=== PATIENT | female | born 1980 | race Caucasian/White ===

== ENCOUNTER → 2020-11-23 17:40 | Outpatient (CLI) | payer BC, SELFPAY ==
--- NOTE | ~2020-11-23 | MM_ITS ---
EXAMINATION: MM screening kimmy BI w bereket HISTORY: Screening mammogram TECHNIQUE: Craniocaudal and mediolateral oblique 3-D tomosynthesis images were obtained and synthetic 2-D images were generated. CAD analysis was submitted and interpreted. COMPARISON: No prior mammogram is available for comparison at this institution. BREAST PARENCHYMAL COMPOSITION: There are scattered areas of fibroglandular density. FINDINGS: Marrow bilateral mammographic asymmetries. Bilateral diagnostic mammography is recommended, with ultrasound if required. IMPRESSION: 1. Bilateral mammographic asymmetries 2. Bilateral diagnostic mammography is recommended, with ultrasound if required BI-RADS Category 0: Incomplete: Needs additional imaging evaluation. Reviewed, dictated and finalized at location A.
== END ==
PROVIDERS: Visit Provider Nurse Practitioner
DX: Z12.31 Encounter for screening mammogram for malignant neoplasm of breast (principal); R92.8 Other abnormal and inconclusive findings on diagnostic imaging of breast
CPT/HCPCS: 77063; 77067

== ENCOUNTER → 2020-12-29 14:21 | Outpatient (CLI) | payer BC, SELFPAY ==
--- NOTE | ~2020-12-29 | MMUS_ITS ---
EXAMINATION: MM diagnostic kimmy BI w bereket, US breast BI complete HISTORY: Follow-up breast asymmetries TECHNIQUE: Additional 3-D tomosynthesis images of the breasts were performed and synthetic 2-D images were generated. CAD analysis was submitted and interpreted. High resolution complete bilateral breas t ultrasound was performed. COMPARISON: 11/23/2020 BREAST PARENCHYMAL COMPOSITION: Breast composed of scattered areas of fibroglandular density. FINDINGS: MAMMOGRAPHIC FINDINGS: There are no suspicious masses, calcifications or architectural distortion to suggest malignancy. ULTRASOUND: Bilateral breast complete ultrasound: No discrete masses or fluid collections are identified in the r ight breast. There is a small 3 mm cyst in the left breast at 1:00, 5 cm from the nipple. No sonograp hic evidence for malignancy in either breast. IMPRESSION: 1. No evidence for malignancy in either breast. 2. Routine yearly screening mammogram and regular clinical breast examination are recommended. BI-RADS Category 2: Benign finding(s). Reviewed, dictated and finalized at location A. IMPRESSION: 1. No evidence for malignancy in either breast. 2. Routine yearly screening mammogram and regular clinical breast examination a re recommended. BI-RADS Category 2: Benign finding(s).
== END ==
PROVIDERS: Visit Provider Obstetrics & Gynecology Gynecology
DX: R92.8 Other abnormal and inconclusive findings on diagnostic imaging of breast (principal)
CPT/HCPCS: 76641; 77062; 77066; G0279

== ENCOUNTER 2021-05-05 07:58 | Outpatient (CLI) | payer OTHER, SELFPAY ==
--- NOTE | ~2021-05-05 | US_ITS ---
EXAMINATION: US right upper quadrant DATE: 05/05/2021 08:28 INDICATION: Nausea and vomiting, abdominal pain TECHNIQUE: Multiple grayscale and Doppler ultrasound images of the abdomen were obtained. COMPARISON: None available FINDINGS: The head and body of the pancreas are normal. The pancreatic tail is obscured by bowel gas. The liver is normal with normal echogenicity and echotexture. No surface nodularity. Normal hepatope irving flow in the main portal vein. The gallbladder is normal with no abnormal wall thickening, pericho lecystic fluid or stones. The normal common bile duct measures 5 mm. There was no sonographic Amaya sign. IMPRESSION: 1. Normal sonographic study of the gallbladder. Reviewed, dictated and finalized at location B.
== END 2021-05-05 07:59 | disposition home or self-care (01) ==
LOC: ANHIMG 08:03
PROVIDERS: PCP Family Medicine; Visit Provider Physician Assistant
DX: R11.2 Nausea with vomiting, unspecified (principal); R10.84 Generalized abdominal pain
CPT/HCPCS: 76705

== ENCOUNTER → 2021-05-11 14:57 | Outpatient (CLI) | payer OTHER, SELFPAY ==
--- NOTE | ~2021-05-11 | CT_ITS ---
EXAMINATION: CT abdomen w con INDICATION: Generalized abdominal pain TECHNIQUE: Computed tomographic images of the abdomen were obtained after the administration of 100 c c of Omnipaque 350 intravenous contrast. The dose-length product (DLP) was 767.58 mGy-cm. Automated e xposure control and iterative reconstruction technique were employed. COMPARISON: None FINDINGS: The visualized lung bases are clear. The heart size is normal. The liver, spleen, pancreas, gallbladder, and adrenal glands are normal. Cysts of the kidneys measure up to 1.4 cm on the left. T here is a 6 mm stone in the right renal pelvis. There is subtle urothelial enhancement of the right r enal pelvis compared to the left. There are no pathologically enlarged abdominal lymph nodes. There i s no free intraperitoneal gas or evidence of bowel obstruction. A fat-containing umbilical hernia is noted. IMPRESSION: 1. 6 mm stone of the right renal pelvis. Subtle urothelial enhancement in the renal pelvis could sugg est superimposed urinary tract infection. Reviewed, dictated and finalized at location B. BASES SOFTWARE CONSULTANT IMPRESSION: 1. 6 mm stone of the right renal pelvis. Subtle urothelial enhancement in the r enal pelvis could suggest superimposed urinary tract infection.
== END ==
PROVIDERS: PCP Family Medicine; Visit Provider Physician Assistant
DX: N20.0 Calculus of kidney (principal)
CPT/HCPCS: 74160; Q9967

== ENCOUNTER 2021-05-17 07:37 | Emergency (ER) | payer OTHER, SELFPAY ==
[2021-05-17] VITALS (20 sets, daily range): BP systolic 113–135; BP diastolic 78–99; PULSE 80–90; RESP 16–18; TEMP 36.8; O2SAT 96–100
--- NOTE | ~2021-05-17 | CT_ITS ---
EXAMINATION: CT abdomen pelvis wo con DATE: 05/17/2021 08:38 INDICATION: Right flank pain. TECHNIQUE: Computed tomography (CT) of the abdomen and pelvis was performed without intravenous contr ast. Automated exposure control and iterative reconstruction technique were employed. The dose-length product was 523.67 mGy-cm. COMPARISON: CT abdomen 05/11/2021 FINDINGS: The visualized portions of the lung bases demonstrate mild atelectasis. No pleural effusion . The heart size is normal. No pericardial effusion. The liver, spleen, pancreas, gallbladder, and ad renal glands are normal. There is a 2 mm stone in right kidney. There is mild right hydronephrosis an d proximal hydroureter. There are 4 mm and 3 mm stones in proximal right ureter. There are 3 stones i n left kidney measuring up to 5 mm. There are no dilated loops of bowel. There is a 2.8 x 1.7 cm mass in right inguinal region. The appendix is not well visualized. There are no pathologically enlarged lymph nodes. There is no free intraperitoneal fluid. There is a kaylene and screw fixation of right femur . There is mild lumbar spondylosis. IMPRESSION: 1. 4 mm and 3 mm stones in proximal right ureter with mild right hydronephrosis and proximal hydroure ter. 2. Bilateral nonobstructing kidney stones. 3. 2.8 x 1.7 cm mass in right inguinal region at the right side of the section scar. The dif ferential diagnosis includes endometriosis, desmoid, and scarring. Reviewed, dictated and finalized at location A. TRUCTION SERVICES TECHNICIAN IMPRESSION: 1. 4 mm and 3 mm stones in proximal right ureter with mild right hydronephrosis and proximal hydroureter. 2. Bilateral nonobstructing kidney stones. 3. 2.8 x 1.7 cm mass in right inguinal region at the right side of the section scar. The differential diagnosis includes endometriosis, desmoid, and scarring.
--- NOTE | 2021-05-17 08:57 | ED.ABDPAIN ---
HPI - Abdominal Pain General Chief Complaint: Abdominal Pain Stated Complaint: kidney stone Time Seen by Provider: 05/17/21 08:01 Source: patient and RN notes reviewed Mode of arrival: ambulatory Limitations: no limitations History of Present Illness HPI narrative: Patient complaining of right abdominal pain radiating to right flank area started few days ago, got worse overnight. Patient denies any fever, chills. Patient had a recent diagnosis of right kidney stone 7 days ago. Patient denies history of abdominal surgery. section x2. Related Data Allergies Allergy/AdvReac Type Severity Reaction Status Date / Time morphine Allergy Mild Nausea and Unverified 01/23/16 12:21 Vomiting codeine Allergy Unknown Unverified 01/23/16 12:21 Penicillins Allergy Unknown Verified 01/23/16 12:21 Review of Systems Review of Systems: CONSTITUTIONAL: Denies fever, chills, or sweats. EYES: Denies visual changes, redness, or discharge. ENT: Denies rhinorrhea, congestion, sore throat, or otalgia. CARDIOVASCULAR: Denies chest pain, palpitations, or edema. RESPIRATORY: Denies cough or dyspnea. GASTROINTESTINAL: Denies abdominal pain, nausea, vomiting, or diarrhea. GENITOURINARY: Denies dysuria or hematuria. SKIN: Denies rash or itching. MUSCULOSKELETAL: Denies back pain, joint pain, or myalgia. NEUROLOGIC: Denies headache, numbness, or weakness. PSYCHIATRIC: Denies anxiety or depression. Course Course Emergency Course: Stable Vital Signs Vital signs: Vital Signs Temperature 36.8 C 05/17/21 07:47 Pulse Rate 90 05/17/21 07:47 Respiratory Rate 16 05/17/21 07:47 Blood Pressure 135/86 05/17/21 07:47 Pulse Oximetry 100 05/17/21 07:47 Temperature 36.8 C 05/17/21 07:47 Pulse Rate 90 05/17/21 07:47 Respiratory Rate 16 05/17/21 07:47 Blood Pressure 135/86 05/17/21 07:47 Pulse Oximetry 100 05/17/21 07:47 MDM - Abdominal Pain MDM Narrative Medical decision making narrative: Kidney stone is my concern. Differential diagnosis as below. Labs, CT abdomen and pelvis without contrast ordered Differential Diagnosis Differential diagnosis: Likely abdominal pain, acute appendicitis, calculus of kidney, constipation, diverticulitis and pancreatitis Lab Data Result diagrams: 05/17/21 08:54 05/17/21 08:54 Labs: Lab Results 05/17/21 05/17/21 05/17/21 Range/Units 08:54 08:54 08:54 WBC 5.7 (4.5-10.0) K/mm3 RBC 4.93 (4.2-5.4) M/mm3 Hgb 14.7 (12.0-15.0) g/dL Hct 42.0 (37.0-47.0) % MCV 85.2 (80-100) fl MCH 29.8 (26-34) pg MCHC 35.0 (32-36) g/dl RDW 13.4 (11.5-14.5) % Plt Count 169 (150-375) k/mm3 MPV 11.0 H (7.4-10.4) fl Immature Gran % (Auto) 0.2 (0-0.5) % Neut % (Auto) 54.3 (45.5-73.1) % Lymph % (Auto) 38.6 (18.3-44.2) % [place] % (Auto) 4.5 (2.6-8.5) % Eos % (Auto) 2.1 (0-4.4) % Baso % (Auto) 0.3 (0.2-1.2) % Lymph # (Auto) 2.21 (0.9-3.2) K/mm3 [place] # (Auto) 0.3 (0.1-0.6) K/mm3 Eos # (Auto) 0.1 (0-0.3) K/mm3 Baso # (Auto) 0.0 (0.0-0.1) K/mm3 Abs Immat Gran (auto) 0.01 (0.00-0.031) K/mm3 Absolute Neuts (auto) 3.1 (1.3-6.7) K/mm3 Absolute Nucleated RBC 0.0 (0.0-0.012) K/mm3 Nucleated RBC % 0.0 (0.0-0.2) % Sodium Pending Potassium Pending Chloride Pending Carbon Dioxide Pending Anion Gap Pending BUN Pending Creatinine Pending Estim Creat Clear Calc Pending Estimated GFR Pending Glucose Pending Calcium Pending Total Bilirubin Pending AST Pending ALT Pending Alkaline Phosphatase Pending Total Protein Pending Albumin Pending Lipase Pending Urine Color Pending Urine Appearance Pending Urine pH Pending Ur Specific [place] Pending Urine Protein Pending Urine Glucose (UA) Pending Urine Ketones Pending Ur Blood (Man) Pending Uri
[2021-05-17 09:02] LABS: Basophils Percent Auto 0.3 % (0.2-1.2); Eosinophils Absolute Auto 0.1 K/mm3 (0-0.3); Eosinophils Percent Auto 2.1 % (0-4.4); Hemoglobin 14.7 g/dL (12.0-15.0); Immature Granulocyte Absolute 0.01 K/mm3 (0.00-0.031); Immature Granulocyte Percent A 0.2 % (0-0.5); Lymphocytes Absolute Auto 2.21 K/mm3 (0.9-3.2); Lymphocytes Percent Auto 38.6 % (18.3-44.2); Mean Corpuscular Hemoglobin 29.8 pg (26-34); Mean Corpuscular Volume 85.2 fl (80-100); Monocytes Absolute Auto 0.3 K/mm3 (0.1-0.6); Monocytes Percent Auto 4.5 % (2.6-8.5); Neutrophils Absolute Auto 3.1 K/mm3 (1.3-6.7); Neutrophils Percent Auto 54.3 % (45.5-73.1); Platelet Count Result 169 k/mm3 (150-375); Red Blood Count 4.93 M/mm3 (4.2-5.4); Red Cell Distribution Width 13.4 % (11.5-14.5); White Blood Count 5.7 K/mm3 (4.5-10.0)
[2021-05-17 09:09] LABS: Add Urine Microscopic? YES; Appearance Urine Cloudy (Clear); Bacteria Urine Trace /hpf; Bilirubin Urine Negative (Negative); Blood Urine 1+ (Negative); Color Urine Yellow (Yellow); Glucose Urine UA Negative (Negative); Ketones Urine Negative (Negative); Leukocyte Esterase Ur Negative LEU/UL (Negative); Mucus Urine Few /lpf; Nitrate Urine Negative (Negative); Protein Urine 1+ mg/dL (Negative); RBC Urine 21-50 /hpf (0-2); Specific Grav Ur 1.021 (1.001-1.035); Squamous Epithelial Cell Urine Many /hpf (Few); Urobilinogen Urine Negative mg/dL (<2.0)
[2021-05-17 09:19] LABS: Alanine Aminotransferase 32 U/L (4-35); Albumin Level 4.4 g/dL (3.5-5.1); Alkaline Phosphatase 68 U/L (38-126); Anion Gap 10 mmol/L (8-16); Aspartate Amino Transferase 32 U/L (14-36); Bilirubin,Total 0.4 mg/dL (0.2-1.3); Blood Urea Nitrogen 8 mg/dL (7-17); Calcium 9.5 mg/dL (8.4-10.2); Carbon Dioxide 22 mmol/L (22-30); Chloride 109 mmol/L (98-107); Estimated CRCL calculation 87 ml/min; Estimated Glomerular Filt Rate > 60; Glucose 134 mg/dL (65-110); Lipase 46 U/L (23-300); Potassium 3.7 mmol/L (3.4-5.0); Sodium 141 mmol/L (137-145)
[2021-05-17] MEDS: ONDANSETRON INJ 4 MG/2 ML VIAL IV PUSH (09:19)
[2021-05-17] MEDS: KETOROLAC 30 MG/ML VIAL (*BKC) IV PUSH (09:19)
[2021-05-17] MEDS: TAMSULOSIN HCL 0.4 MG CAPSULE PO (09:20)
== END 2021-05-17 10:52 | disposition home or self-care (01) ==
PROVIDERS: Emergency Provider Emergency Medicine; PCP Family Medicine
DX: N13.2 Hydronephrosis with renal and ureteral calculous obstruction (principal); R19.03 Right lower quadrant abdominal swelling, mass and lump
CPT/HCPCS: 36415; 74176; 80053; 81001; 81025; 83690; 85025; 87086; 87088; 96374; 96375; 99284; A9270; J1885; J2405

== ENCOUNTER → 2022-12-16 14:05 | Outpatient (CLI) | payer BC, SELFPAY ==
--- NOTE | ~2022-12-16 | US_ITS ---
EXAMINATION: US pelvic complete DATE: 12/16/2022 14:26 INDICATION: Abnormal uterine bleeding. Pelvic pain. Comparison:No prior studies for comparison. TECHNIQUE: Multiple transabdominal and endovaginal sonographic images of the pelvis performed. FINDINGS: The uterus measures 11 x 4.3 x 5.8 cm. The endometrial complex measures 8 mm. The right ovary measures 3.6 x 2.6 x 2.9 cm and the left ovary measures 2.7 x 2.5 x 2.2 cm. There ar e small follicles in each ovary. Normal doppler signal in both ovaries. There is no free fluid in the pelvis. There are no abnormal masses seen on either side. IMPRESSION: 1. Unremarkable pelvic ultrasound. Reviewed, dictated and finalized at location []
== END ==
PROVIDERS: PCP Nurse Practitioner; Visit Provider Nurse Practitioner
DX: N93.8 Other specified abnormal uterine and vaginal bleeding (principal); R10.2 Pelvic and perineal pain
CPT/HCPCS: 76856

== ENCOUNTER → 2023-03-03 16:04 | Outpatient (CLI) | payer BC, SELFPAY ==
--- NOTE | ~2023-03-03 | MM_ITS ---
EXAMINATION: MM screening kimmy BI w bereket HISTORY: Screening mammogram TECHNIQUE: Craniocaudal and mediolateral oblique 3-D tomosynthesis images were obtained and synthetic 2-D images were generated. CAD analysis was submitted and interpreted. COMPARISON: 12/29/2020 diagnostic bilateral mammogram and complete bilateral breast ultrasound 11/19/2020 bilateral screening mammogram BREAST PARENCHYMAL COMPOSITION: There are scattered areas of fibroglandular density. FINDINGS: There is no evidence of suspicious mass, calcification, or architectural distortion to sugg est malignancy in either breast. There has been no suspicious interval change. IMPRESSION: 1. No mammographic evidence of malignancy. 2. Recommend routine screening mammography in one year. BI-RADS Category 1: Negative Reviewed, dictated and finalized at location A.
== END ==
PROVIDERS: PCP Nurse Practitioner; Visit Provider Nurse Practitioner
DX: Z12.31 Encounter for screening mammogram for malignant neoplasm of breast (principal)
CPT/HCPCS: 77063; 77067

== ENCOUNTER 2024-04-04 10:50 | Outpatient (CLI) | payer BC, SELFPAY ==
--- NOTE | ~2024-04-04 | CT_ITS ---
Non-contrast CT scan of the Abdomen and Pelvis Clinical indication: Ureteral stone Technique: 2.5 mm axial scans were obtained through the abdomen and pelvis without intravenous or or al contrast. Dose reduction technique was used on this scan by utilizing automated exposure control a nd iterative reconstruction technique. The dose-length product (DLP) was 1105.13 mGy-cm. COMPARISON: 05/17/2021 Findings: Images through the lung bases reveal no abnormalities. There is a 1.0 x 0.8 cm ovoid stone at the very proximal left ureter, with moderate left hydronephros is. Punctate nonobstructing right renal stone noted. No other ureteral stones identified. No right hy dronephrosis. The liver, spleen, pancreas, gallbladder, and adrenals appear normal. There is no aortic aneurysm. There is no evidence of bowel obstruction. Small fat-containing umbilical hernia noted. Images through the pelvis were performed. There is no evidence of ascites or lymphadenopathy. Urinary bladder unremarkable. No adnexal mass seen. No ascites. Impression: 1.0 x 0.8 cm stone at the very proximal left ureter, with moderate left hydronephrosis. Punctate nonobstructing right renal stone. Small fat-containing umbilical hernia. Reviewed, dictated and finalized at [facility]. Impression: 1.0 x 0.8 cm stone at the very proximal left ureter, with moderate left hydrone phrosis. Punctate nonobstructing right renal stone. Small fat-containing umbilical hernia.
--- NOTE | ~2024-04-04 | XR_ITS ---
XR abdomen/kub 1V Ordering provider: Paulo Ling History: . Calculus of ureter . Comparison: None. FINDINGS: BOWEL: Nonobstructive bowel gas pattern. ORGANOMEGALY: None. SIGNIFICANT PATHOLOGIC CALCIFICATIONS: Stone is seen in the left renal area. OTHER: No free air is seen under the diaphragm. IMPRESSION: NO ACUTE ABDOMINAL FINDINGS. Stone in the left renal area. Reviewed, dictated and finalized at location A.
== END 2024-04-04 10:51 | disposition home or self-care (01) ==
LOC: MICIMG 10:51
DX: N13.2 Hydronephrosis with renal and ureteral calculous obstruction (principal); K42.9 Umbilical hernia without obstruction or gangrene
CPT/HCPCS: 74018; 74176